=== PATIENT | male | born 1950 | race Caucasian/White ===

== ENCOUNTER 2017-09-17 09:55 | Emergency (ER) | payer MEDICARE, BC ==
--- NOTE | 2017-09-17 10:16 | EDM.PDOC ---
ED HPI GENERAL MEDICAL PROBLEM - General Chief Complaint: Cardiovascular Problem Stated Complaint: CHEST PAIN Time Seen by Provider: 09/17/17 10:07 Source of Information: Reports: Patient History Limitations: Reports: No Limitations - History of Present Illness INITIAL COMMENTS - FREE TEXT/NARRATIVE: 66-year-old male presents the ED with numbness and tingling in both of his hands. Also appreciates marked weakness of his right upper extremity and mild weakness of his left upper extremity. This occurred as he was driving a vehicle from [place] towards [place]. Near [place] he started to develop significant numbness and tingling in both hands and then weakness of both hands particularly the right. Weakness and numbness got so bad that he had to stop driving and have his drive the vehicle. Developed mild associated /transient central chest discomfort as well, with mild tingling in his central chest. Is a history of intermittent atrial fibrillation was concerned that he had gotten back into atrial fib. Not feeling lightheaded or dizzy. States his arms is feel weak and likely won't hold onto anything. He denies a headache or being dizzy or lightheaded. He was not off balance when he got out of the vehicle to change places with his . 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 Patient is on Coumadin because of intermittent atrial fibrillation and amiodarone and metoprolol for rate control. These probably started back in June. No medication changes been made in the last several months. At present he is mildly anxious. Reassured that his ECG at this time shows sinus rhythm at 75/m with no sign of atrial fibrillation. There is also no signs of ischemia. Vital signs are all normal. Onset: Today Onset Date: 09/17/17 Onset Time: 09:30 (Occurred while driving his car from [place] towards [place]. Symptoms started about 25 miles east of [place].) Duration: Minutes: Location: Reports: Upper Extremity, Left, Upper Extremity, Right (Numbness and tingling in his hands. He has difficulty stating which fingers are numb and tingling.) Quality: Reports: Ache, Other (Paresthesias and numbness and tingling in the distribution of both hands both an ulnar and median nerve root distributions.) Severity: Moderate (Worse in the right hand as compared to the left.) Improves with: Reports: Rest (Feels they are slowly improving since he's not driving the vehicle.) Worsens with: Reports: Other (Symptoms are worse while driving a motor vehicle.) Associated Symptoms: Reports: Chest Pain (Chest discomfort). Denies: Cough ( which was transient and gone at the time of my exam.), cough w sputum, Diaphoresis, Fever/Chills, Headaches, Loss of Appetite, Malaise, Nausea/Vomiting , Rash, Seizure, Shortness of Breath, Syncope Chest Pain Score (Numeric/FACES): 0 - Related Data Allergies Allergy/AdvReac Type Severity Reaction Status Date / Time No Known Allergies Allergy Verified 09/17/17 10:01 Home Meds: Home Meds Amiodarone [Cordarone] 200 mg PO BID 09/17/17 [History] Hydrochlorothiazide 12.5 mg PO DAILY 09/17/17 [History] Metoprolol Succinate [Toprol XL] 50 mg PO DAILY 09/17/17 [History] Pantoprazole Sodium [Protonix] 40 mg PO DAILY 09/17/17 [History] Warfarin [Coumadin] 5 mg PO DAILY 09/17/17 [History] atorvaSTATin [Lipitor] 20 mg PO DAILY 09/17/17 [History] diphenhydrAMINE [Benadryl] 25 mg PO Q6H PRN 09/17/17 [History] Past Medical History HEENT History: Reports: Impaired Vision Cardiovascular History: Reports: Afib (Intermittent atrial fibrillation and for this reason he is on Coumadin. This problem started in June. He is on amiodarone and metoprolol for rate control.), Heart Failure, Other (See Below) ( At onset of illness which I am not fully aware of it sounds like he developed a cardiomyopathy which under perfused his kidneys which created renal failure enough to require transient dialysis. He spent 23 days in hospital back in May.) Other Cardiovascular History: A Flutter Gastrointestinal History: Reports: GERD, Other (See Below) Other Gastrointestinal History: abdominal bloating Genitourinary History: Reports: Acute Renal Failure Social & Family History - Tobacco Use Smoking Status *Q: Never Smoker - Caffeine Use Caffeine Use: Reports: Coffee - Recreational Drug Use Recreational Drug Use: No - Living Situation & Occupation Living situation: Reports: Occupation: Employed ED ROS GENERAL - Review of Systems Review Of Systems: See Below Constitutional: Denies: Fever, Malaise, Weakness, Fatigue, Night Sweats, Diaphoresis, Decreased Appetite, Weight Loss, Weight Gain HEENT: Reports: No Symptoms Respiratory: Reports: No Symptoms. Denies: Shortness of Breath, Wheezing, Pleuritic Chest Pain, Cough, Sputum, Hemoptysis, Other Cardiovascular: Reports: Chest Pain, Dyspnea on Exertion, Palpitations ( Intermittently due to intermittent atrial fibrillation). Denies: Blood Pressure Problem (Mild chest discomfort which is gone at the time of my exam.), Claudication, Edema, Lightheadedness, Orthopnea, PND Endocrine: Reports: Fatigue (For medications) GI/Abdominal: Reports: Other (Intermittent problems with reflux disease.) : Reports: Other (Nocturia 3. Mild BPH.) Musculoskeletal: Reports: Neck Pain, Shoulder Pain, Back Pain Skin: Reports: No Symptoms Neurological: Reports: Paresthesia (Presentation with paresthesias in both hands difficulty discerning whether ulnar nerve or median nerve are both are involved.) Psychiatric: Reports: No Symptoms Hematologic/Lymphatic: Reports: No Symptoms Immunologic: Reports: No Symptoms ED EXAM, GENERAL - Physical Exam Exam: See Below Exam Limited By: No Limitations General Appearance: Alert, WD/WN, Anxious, Mild Distress Eye Exam: Bilateral Eye: Normal Inspection Throat/Mouth: Normal Inspection, Normal Lips, Normal Oropharynx Head: Atraumatic, Normocephalic Neck: Normal Inspection, Supple, Non-Tender, Full Range of Motion. No: Carotid Bruit, Lymphadenopathy (L), Lymphadenopathy (R), Thyromegaly Respiratory/Chest: No Respiratory Distress, Lungs Clear, Normal Breath Sounds, No Accessory Muscle Use, Chest Non-Tender, Respiratory Distress Cardiovascular: Normal Peripheral Pulses, Regular Rate, Rhythm, No Edema, No Gallop, Extra Beats (okay ectopic beats on the monitor these appear to be PACs.) Peripheral Pulses: 2+: Radial (L), Radial (R), Posterior Tibial (L), Posterior Tibial (R), Dorsalis Pedis (L), Dorsalis Pedis (R) GI/Abdominal: Normal Bowel Sounds, Soft, Non-Tender, No Organomegaly Back Exam: Normal Inspection, Full Range of Motion Extremities: Normal Inspection, Normal Range of Motion, Non-Tender, No Pedal Edema Neurological: Alert, Oriented, CN II-XII Intact, Normal Cognition, Normal Gait, Abnormal Reflexes (Almost a flaccid paresis of both upper extremities with absence of reflexes. Normal patellar reflexes and 1+ and symmetrical Achilles tendon reflexes evident. Normal motor power and tone in his lower extremities with ability to walk with no ataxia.), Sensory/Motor Deficit (Sensory deficits sensory deficit only in both hands in the distribution of the median nerve primarily. He is unable to grasp my hands in an effort to shake it. The right is weaker than the left. He has slight ability to flex the hand off the gurney but he can't hold it against gravity. Left is slightly stronger than the right. He reports this morning he can feed himself and do all of his normal care with his right hand and efforts of a sudden occurrence of bilateral upper extremity weakness involving C5,6 AND 7 dermatomes primarily.), Other (He has absence of brachial and brachioradialis reflexes is in either upper extremity.). No: No Motor/Sensory Deficits Psychiatric: Normal Affect, Normal Mood, Anxious Skin Exam: Warm, Dry, Intact, Normal Color, No Rash EKG INTERPRETATION EKG Date: 09/17/17 Time: 10:05 Rhythm: NSR Rate (Beats/Min): 76 [place]: Normal P-Wave: Present QRS: Other (Borderline criteria for left ventricular hypertrophy.) ST-T: Other (T-wave flattening in leads 3 slight depression in leads 1 and aVL nonspecific findings there is a slight delay and repolarization pattern.) QT: Prolonged (Moderately prolonged. Note he is on amiodarone.) EKG Interpretation Comments: Abnormal ECG Course - Vital Signs Last Recorded V/S: Last Vital Signs Temp 36.4 C 09/17/17 09:56 Pulse 89 09/17/17 09:56 Resp 14 09/17/17 09:56 BP 140/73 09/17/17 09:56 Pulse Ox 98 09/17/17 09:56 - Orders/Labs/Meds Orders: Active Orders 24 hr Category Date Time Status EKG Documentation Completion [RC] STAT Care 09/17/17 10:00 Active EKG Documentation Completion [RC] STAT Care 09/17/17 10:16 Inactive Dextrose 5%-0.9% NaCl [Dextrose 5%-Normal Saline] 1,000 Med 09/17/17 10:30 Active ml IV ASDIRECTED Medication Orders Dextrose/Sodium Chloride (Dextrose 5%-Normal Saline) 1,000 mls @ 150 mls/hr IV ASDIRECTED PATRICK Last Admin: 09/17/17 10:28 Dose: 150 mls/hr Labs: Laboratory Tests 09/17/17 09/17/17 09/17/17 Range/Units 09:59 09:59 09:59 WBC 18.71 H (4.23-9.07) K/mm3 RBC 4.29 L (4.63-6.08) M/mm3 Hgb 11.2 L (13.7-17.5) gm/L Hct 35.0 L (40.1-51.0) % MCV 81.6 (79.0-92.2) fl MCH 26.1 (25.7-32.2) pg MCHC 32.0 L (32.2-35.5) g/dl RDW Std Deviation 45.6 H (35.1-43.9) fL Plt Count 679 H (163-337) K/mm3 MPV 8.6 L (9.4-12.3) fl Neut % (Auto) 80.8 H (34.0-67.9) % Lymph % (Auto) 7.8 L (21.8-53.1) % [place] % (Auto) 9.1 (5.3-12.2) % Eos % (Auto) 1.5 (0.8-7.0) Baso % (Auto) 0.3 (0.1-1.2) % Neut # (Auto) 15.12 H (1.78-5.38) K/mm3 Lymph # (Auto) 1.46 (1.32-3.57) K/mm3 [place] # (Auto) 1.70 H (0.30-0.82) K/mm3 Eos # (Auto) 0.29 (0.04-0.54) K/mm3 Baso # (Auto) 0.05 (0.01-0.08) K/mm3 Manual Slide Review Abnormal smear PT 30.1 H (8.0-13.0) SECONDS INR 2.60 Sodium 135 L (136-145) mEq/L Potassium 3.2 L (3.5-5.1) mEq/L Chloride 97 L (98-107) mEq/L Carbon Dioxide 26 (21-32) mEq/L Anion Gap 15.2 H (5-15) BUN 25 H (7-18) mg/dL Creatinine 2.0 H (0.7-1.3) mg/dL Est Cr Clr Drug Dosing 42.24 mL/min Estimated GFR (MDRD) 34 (>60) mL/min BUN/Creatinine Ratio 12.5 L (14-18) Glucose 108 (80-115) mg/dL Calcium 9.2 (8.5-10.1) mg/dL Magnesium 1.9 (1.8-2.4) mg/dl Total Bilirubin 0.8 (0.2-1.0) mg/dL AST 63 H (15-37) U/L ALT 61 (16-63) U/L Alkaline Phosphatase 71 (46-116) U/L Creatine Kinase (39-308) U/L CK-MB (CK-2) 3.5 (0-3.6) ng/ml Troponin I < 0.017 (0.00-0.056) ng/mL C-Reactive Protein (<1.0) mg/dL NT-Pro-B Natriuret Pep 1149 H (0-125) pg/mL Total Protein 7.7 (6.4-8.2) g/dl Albumin 2.7 L (3.4-5.0) g/dl Globulin 5.0 gm/dL Albumin/Globulin Ratio 0.5 L (1-2) TSH 3rd Generation (0.358-3.74) uIU/mL 09/17/17 09/17/17 Range/Units 09:59 09:59 WBC (4.23-9.07) K/mm3 RBC (4.63-6.08) M/mm3 Hgb (13.7-17.5) gm/L Hct (40.1-51.0) % MCV (79.0-92.2) fl MCH (25.7-32.2) pg MCHC (32.2-35.5) g/dl RDW Std Deviation (35.1-43.9) fL Plt Count (163-337) K/mm3 MPV (9.4-12.3) fl Neut % (Auto) (34.0-67.9) % Lymph % (Auto) (21.8-53.1) % [place] % (Auto) (5.3-12.2) % Eos % (Auto) (0.8-7.0) Baso % (Auto) (0.1-1.2) % Neut # (Auto) (1.78-5.38) K/mm3 Lymph # (Auto) (1.32-3.57) K/mm3 [place] # (Auto) (0.30-0.82) K/mm3 Eos # (Auto) (0.04-0.54) K/mm3 Baso # (Auto) (0.01-0.08) K/mm3 Manual Slide Review PT (8.0-13.0) SECONDS INR Sodium (136-145) mEq/L Potassium (3.5-5.1) mEq/L Chloride (98-107) mEq/L Carbon Dioxide (21-32) mEq/L Anion Gap (5-15) BUN (7-18) mg/dL Creatinine (0.7-1.3) mg/dL Est Cr Clr Drug Dosing mL/min Estimated GFR (MDRD) (>60) mL/min BUN/Creatinine Ratio (14-18) Glucose (80-115) mg/dL Calcium (8.5-10.1) mg/dL Magnesium (1.8-2.4) mg/dl Total Bilirubin (0.2-1.0) mg/dL AST (15-37) U/L ALT (16-63) U/L Alkaline Phosphatase (46-116) U/L Creatine Kinase 596 H (39-308) U/L CK-MB (CK-2) (0-3.6) ng/ml Troponin I (0.00-0.056) ng/mL C-Reactive Protein 24.4 H* (<1.0) mg/dL NT-Pro-B Natriuret Pep (0-125) pg/mL Total Protein (6.4-8.2) g/dl Albumin (3.4-5.0) g/dl Globulin gm/dL Albumin/Globulin Ratio (1-2) TSH 3rd Generation 1.537 (0.358-3.74) uIU/mL Meds: Medications Generic Name Dose Route Start Last Admin Trade Name Freq PRN Reason Stop Dose Admin Dextrose/Sodium Chloride 1,000 mls @ 150 mls/hr 09/17/17 10:30 09/17/17 10:28 Dextrose 5%-Normal Saline IV 150 mls/hr ASDIRECTED PATRICK Administration - Radiology Interpretation Free Text/Narrative:: 66-year-old male presents to the ED with bilateral hand weakness and numbness and tingling. Started about 75 miles onset of [place] towards [place] will driving his motor vehicle. Right hand started first and then when switching to the left and it started to have similar symptoms. This of course graded some degree of anxiety and some mild chest discomfort. He had to stop driving a motor vehicle due to the discomfort in his hands and have his drive. Opted to come to the hospital for evaluation. Patient was recently diagnosed with new onset atrial fibrillation in June of this year and is on Coumadin and amiodarone and metoprolol for rate control. No medication changes have been made as of late. Examination reveals evidence of likely carpal tunnel syndrome although the patient has trouble discerning which fingers are affected with numbness and tingling. His hands are quite weak at the time of my exam I think from hyperventilation syndrome and I will reexamine him for motor power and tone later. He can walk and talk completely normally. There is no cranial nerve abnormalities. Plan will be routine labs to check her to look at his serum calcium magnesium and sodium and potassium levels. ECG shows sinus rhythm at 76/ m with no signs of ischemia. - Re-Assessments/Exams Free Text/Narrative Re-Assessment/Exam: 09/17/17 11:23 Labs reveal an elevated white count at 18.71 with an auto differential of 80.8% neutrophils. Hemoglobin is 11.2 with hematocrit of 35.0. Platelet count is elevated at 679,000. I.e. essential thrombocytosis. The smear suggests there is increased platelet count as well as increased monocyte count. PT is 30.1 with an INR of 2.60. Slightly supratherapeutic. Sodium is 135 potassium is slightly low at 3.2 chloride 97 bicarbonate 26. Anion gap is 15.2 . BUN is 25. Creatinine is elevated at 2.0. EGFR is 34. Glucose 108. Calcium normal at 9.2. Magnesium normal at 1.9. Bilirubin normal at 0.8 AST minimally elevated at 63 ALT is 61 alkaline phosphatase 71. Cardiac markers are normal. BNP is elevated at 1149. Total protein is normal at 7.7 but albumin fraction is slightly low at 2.7. TSH is normal at 1.537. On reexamination he has no real return of motor power and function in his upper extremities as compared to initial evaluation. He has absence of bicipital reflexes and brachioradialis reflexes bilaterally. Is like he's developed a flaccid paresis of both upper extremities although he has some movement it's not coordinated.. Plan CT head to be done to rule out a intracranial bleed . Also on firm questioning he's been on no steroids recently. He's been treated with a course of antibiotics after developing cellulitis in his left lower extremity after a sprain injury occurred a few weeks back. Been off antibiotics over a week. He's had no fever or chills. He has it appears a lot of generalized malaise and states he has to sleep a good portion of the time. 09/17/17 12:22 CRP is elevated at 24.4 indicating a significant underlying infective process and absence of a fever. His CT of his brain reveals mild age- appropriate degenerative changes in the basal ganglia with small vessel ischemic changes but no intracranial bleeding or mass effect etc. I'm going to have the patient turned around and travel back to [place] for definitive management. He needs an MRI of his brain and cervical cord to identify why he is developed weakness in both upper extremities. Patient will have his drive him back to [facility] in [place] for tentative admission. I will call and discuss with clinical coordinator and potential hospitalist. They do not want to wait at this time and therefore will be on their way. I have sent the by PACs. Patient has a copy of his chart and labs. 09/17/17 12:58 I did speak with hospitalist at [facility] and explained the situation in terms of his symptomatology and that they will patient will be presenting to the hospital. He requires neurological consultation and further imaging studies as to the cause of his sudden upper extremity bilateral weakness. Departure - Departure Time of Disposition: 12:30 Disposition: Home, Self-Care 01 Condition: Fair Clinical Impression: Weakness of both upper extremities, Elevated C-reactive protein (CRP), Chronic renal insufficiency, stage III (moderate) Leukocytosis Qualifiers: Leukocytosis type: bandemia Qualified Code(s): D72.825 - Bandemia Cardiomyopathy Qualifiers: Cardiomyopathy type: unspecified Qualified Code(s): I42.9 - Cardiomyopathy, unspecified Referrals: PCP,Not In Area [Primary Care Provider] - Forms: ED Department Discharge Additional Instructions: Suggest travel back to [place] to [facility] where he received medical care for tentative admission to hospital and further investigations as to the reason for development of upper extremity weakness. Essentially need neurological consultation and MRI of her cervical spine and perhaps brain. - My Orders Last 24 Hours: My Active Orders 09/17/17 10:00 EKG Documentation Completion [RC] STAT 09/17/17 10:16 EKG Documentation Completion [RC] STAT 09/17/17 10:30 Dextrose 5%-0.9% NaCl [Dextrose 5%-Normal Saline] 1,000 ml IV ASDIRECTED - Assessment/Plan Last 24 Hours: My Active Orders 09/17/17 10:00 EKG Documentation Completion [RC] STAT 09/17/17 10:16 EKG Documentation Completion [RC] STAT 09/17/17 10:30 Dextrose 5%-0.9% NaCl [Dextrose 5%-Normal Saline] 1,000 ml IV ASDIRECTED
[2017-09-17] MEDS ORDERED: Dextrose 5%-0.9% NaCl 1,000 ML IV SCH (10:30)
--- NOTE | 2017-09-17 11:35 | CR ---
Chest: Portable view of the chest was obtained. Comparison: No prior study. Heart size and mediastinum are within normal limits. Lungs are clear. Bony structures are grossly intact. Impression: 1. Nothing acute is identified on portable chest x-ray. Diagnostic code #1
--- NOTE | 2017-09-17 12:29 | CT ---
Head CT Technique: Multiple axial sections through the brain were obtained. Intravenous contrast was not utilized. Comparison: No prior intracranial imaging is available. Findings: Ventricles along with basal cisterns and sulci over convexities are mildly prominent. Mild diminished density is noted within the periventricular white matter which is compatible with small vessel ischemic demyelination change. No other abnormal parenchymal densities are seen. No evidence of intracranial hemorrhage. No midline shift or mass effect is seen. Bone window settings were reviewed which shows no acute calvarial abnormality. Visualized sinuses are clear. Impression: 1. Mild senescent change. No acute intracranial abnormality is identified. Diagnostic code #2
== END 2017-09-17 12:50 | disposition home or self-care (01) ==
LOC: JD.ED 09:55
DX: I42.9 Cardiomyopathy, unspecified (principal); N18.3 Chronic kidney disease, stage 3 (moderate); D72.825 Bandemia; M62.81 Muscle weakness (generalized); R79.82 Elevated C-reactive protein (CRP); I48.91 Unspecified atrial fibrillation; I48.92 Unspecified atrial flutter; F41.9 Anxiety disorder, unspecified; R53.1 Weakness
CPT/HCPCS: 36415; 70450; 71010; 80053; 82550; 82553; 83735; 83880; 84443; 84484; 85025; 85610; 86140; 96360; 96361; 99285; J7042; 93010; 99284-25